=== PATIENT | female | born 2000 ===

== ENCOUNTER 2024-12-19 09:21 | Emergency (ER) | payer MEDICAID ==
[~2024-12-19] VITALS: Ht 180.3 cm; Wt 110.0 kg
[2024-12-19 09:41] VITALS: O2SAT 100
[2024-12-19 10:28] LABS: BASOPHILS % 0.5 % (0.0-2.0); EOSINOPHILS % 3.1 % (0.0-5.0); HEMATOCRIT. 27.4 % (36.0-48.0); HEMOGLOBIN. 8.4 g/dL (12.0-16.0); LYMPHOCYTES % 21.9 % (20.0-50.0); MEAN PLATELET VOLUME 6.8 fl (7.4-10.4); MONOCYTES % 5.6 % (2.0-8.0); NEUTROPHILS % 68.9 % (40.0-76.0); PLATELET 298 x1000/uL (130-400); RED BLOOD CELL COUNT 3.83 mill/uL (4.2-5.4); RED CELL DISTRIBUTION WIDTH 17.5 % (11.6-14.6)
[2024-12-19 10:50] LABS: CREATININE 0.9 mg/dL (0.6-1.0)
[2024-12-19 10:51] LABS: UREA NITROGEN BLOOD 7 mg/dL (9-23)
[2024-12-19 10:52] LABS: ASPARTATE AMINOTRANSFERASE 11 IU/L (<34)
[2024-12-19 10:53] LABS: BILIRUBIN DIRECT 0.1 mg/dL (<=3.0); BILIRUBIN TOTAL 0.4 mg/dL (0.1-1.0); PROTEIN TOTAL 7.0 g/dL (6.0-8.3)
[2024-12-19 11:28] VITALS: BP 140/64; PULSE 72; RESP 16; TEMP 36.7; O2SAT 100
== END 2024-12-19 11:30 | disposition home or self-care (01) ==
LOC: ER 09:21
DX: R06.09 Other forms of dyspnea (principal); D64.9 Anemia, unspecified; K21.9 Gastro-esophageal reflux disease without esophagitis; Z79.899 Other long term (current) drug therapy
CPT/HCPCS: 36415; 71045; 80048; 80076; 83735; 85025; 86850; 86900; 99284